=== PATIENT | female | born 2000 | race Caucasian/White ===

== ENCOUNTER 2023-08-23 06:28 | Emergency (ER) | payer BC ==
[~2023-08-23] VITALS: Ht 170.2 cm; Wt 63.6 kg
[~2023-08-23 06:28] MED LIST: CEFTIN500 MG PO
[2023-08-23 06:40] VITALS: TEMP 98.3
[2023-08-23] MEDS ORDERED: LR 1,000 ML IV ONE (07:00)
[2023-08-23] MEDS ORDERED: Ondansetron 4 MG/2 ML VIAL IV ONE (07:00)
[2023-08-23 07:02] LABS: BASO # 0.1 K/mm3 (0.0-0.2); BASO % 0.4 % (0.0-2.0); GRAN # 11.4 K/mm3 (1.4-6.5); GRAN % 89.4 % (42.2-75.2); HEMATOCRIT 42.7 % (37.0-47.0); HEMOGLOBIN 14.3 g/dl (12.5-16.0); LYMPH # 0.8 K/mm3 (1.2-3.4); LYMPH % 5.9 % (20.0-51.0); MEAN CELL VOLUME 90 fl (80.0-100.0); MEAN CORPUSCULAR HEMOGLOBIN 30 pg (27-31); MEAN CORPUSCULAR HGB CONC 34 g/dl (33.0-37.0); MEAN PLATELET VOLUME 10.1 fl (7.4-10.4); MONO # 0.5 K/mm3 (0.1-0.6); MONO % 4.1 % (1.7-9.3); PLATELET COUNT 220 K/mm3 (130-400); RED BLOOD COUNT 4.74 M/mm3 (4.10-5.30); REDCELL DISTRIBUTION WIDTH-CV 12.4 % (11.5-14.5)
[2023-08-23 07:14] LABS: ALBUMIN 4.4 g/dL (3.5-5.0); BILIRUBIN,TOTAL 0.8 mg/dL (0.2-1.2); C-REACTIVE PROTEIN 2.2 mg/dL (0.00-0.50); CALCIUM 9.8 mg/dL (8.4-10.2); CREATININE, serum 0.75 mg/dL (0.57-1.11); POTASSIUM 3.8 mEq/L (3.5-4.5); TOTAL PROTEIN 8.3 g/dl (6.2-8.1)
[2023-08-23] MEDS ORDERED: Morphine 4 MG/ML VIAL IV ONE ×2 (07:15→10:00)
[2023-08-23] MEDS ORDERED: Iohexol 300 - 100 ML VIAL IV ONE (08:34)
[2023-08-23] MEDS ORDERED: NS 100 ML IV SCH (08:36)
[2023-08-23] MEDS ORDERED: cefTRIAXone 2 G in Water For Injection,Sterile 20 ML IV ONE (09:15)
[2023-08-23 09:41] LABS: COLLECTION METHOD CLEAN CATCH
[2023-08-23] MEDS ORDERED: CEFTIN 250250 MG/TAB PO (09:42)
[2023-08-23 09:44] LABS: URINE APPEARANCE CLEAR (CLEAR/HAZY); URINE BLOOD NEGATIVE (NEGATIVE); URINE COLOR YELLOW (YELLOW); URINE GLUCOSE NEGATIVE (NEGATIVE); URINE KETONE NEGATIVE (NEGATIVE); URINE NITRATE NEGATIVE (NEGATIVE); URINE PROTEIN(semi-quant) NEGATIVE (NEGATIVE); URINE UROBILINOGEN 0.2 E.U/dL (0.2-1.0)
[2023-08-23 09:49] VITALS: BP 103/67; PULSE 73
[2023-08-23] MEDS ORDERED: NORCO 325 MG-51 TAB PO (10:00)
[2023-08-27] MEDS ORDERED: BACTRIM DS 8001 TAB PO (12:21)
[2023-08-27] MEDS ORDERED: ROXICODONE 55 MG/TAB PO (12:22)
== END 2023-08-23 10:18 | disposition home or self-care (01) ==
LOC: COL.ER 06:28
PROVIDERS: Family Medicine
DX: N12 Tubulo-interstitial nephritis, not specified as acute or chronic (principal)
CPT/HCPCS: J0696; J2270; J2405; J7120; Q9967